=== PATIENT | female | born 2000 | race Caucasian/White ===

== ENCOUNTER 2019-05-27 15:56 | Outpatient (REF) | payer SELFPAY ==
[2019-05-27 19:02] LABS: Chol HDL Ratio 4.45 mg/dL (0.0-4.40); Cholesterol 187 mg/dL (0-200); Glucose 130 mg/dL (65-115); HDL Cholesterol 42 mg/dL (60-100); LDL Cholesterol Calculated 113 mg/dL (50-129); LDL HDL Ratio 2.69 RATIO (0.00-3.22); Triglycerides 158 mg/dL (0-150)
[2019-05-27 21:37] LABS: Estmated Average Glucose 128; Hemoglobin A1C 6.1 % (4.0-6.0)
== END 2019-05-27 15:57 | disposition home or self-care (01) ==
LOC: LAB 15:56
PROVIDERS: Visit Provider Dermatology
DX: Z13.9 Encounter for screening, unspecified (principal)
CPT/HCPCS: 80061; 82947; 83036

== ENCOUNTER → 2019-11-04 11:11 | Outpatient (BNVA) | payer SELFPAY | PROVIDERS: Visit Provider Nurse Practitioner Family | DX: E11.9 Type 2 diabetes mellitus without complications (principal) | CPT/HCPCS: 83036; 84681 ==

== ENCOUNTER → 2021-04-17 12:00 | Outpatient (BNVA) | payer SELFPAY | PROVIDERS: PCP Nurse Practitioner Family; Visit Provider Nurse Practitioner Family | DX: E11.9 Type 2 diabetes mellitus without complications (principal); E03.9 Hypothyroidism, unspecified; Z13.6 Encounter for screening for cardiovascular disorders; E55.9 Vitamin D deficiency, unspecified | CPT/HCPCS: 36415; 81003; 83036; 85025 ==

== ENCOUNTER 2021-07-24 22:32 | Emergency (ER) | payer MEDICAID, SELFPAY ==
[2021-07-24 22:38] VITALS: BP 140/89; PULSE 94; RESP 14; TEMP 36.3; O2SAT 97; BMI 32.5
--- NOTE | 2021-07-24 22:48 | W.ED.PREGNAN ---
HPI - General: Chief complaint: Abdominal Pain Stated complaint: preg, pain in lower abd Time Seen by Provider: 07/24/21 22:38 Source: patient Mode of arrival: ambulatory Limitations: no limitations History of Present Illness: Patient is a nice female at approximately 17 weeks gestation here for complaints of some lower abdominal pain. 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 She felt like she noticed it more so when she would sit down. She does states she feels like her bladder hurts when she urinates. She does complain of some vaginal frequency and feeling like she has to go again immediately after urinating. She is not having any fevers or flank pain. She has not had any vaginal bleeding. She does report some vaginal discharge but is not sure if this is physiologic with . She has not had any odorous discharge. Denies yellow/green discharge. She is monogamous with her partner and denies concerns for STDs. She is not having any contraction-like sensations. Patient states she is a diabetic and is being followed by an OB in [place]. Complaint: abdominal pain Onset (ago): day(s) Pain Consistency: intermittent Location: pelvis Relieving factors: none Vaginal bleeding: none Patient : Yes Associated symptoms: Reports abdominal pain and vaginal discharge; Deny dysuria, headache(s), malaise, nausea or vomiting Review of Systems Const: Denies: fever(s), chills, body aches, fatigue or malaise Card: Denies: chest pain Resp: Denies: dyspnea GI: Reports: abdominal pain; Denies: nausea, vomiting, diarrhea or change in bowel habits : Reports: urinary frequency and vaginal discharge; Denies: flank pain, difficulty voiding, dysuria, urinary urgency, urinary hesitancy, dribbling, nocturia, oliguria, urinary incontinence, hematuria, genital lesions, genital pruritis, vaginal odor or vaginal bleeding Musc: Denies: neck pain, back pain, extremity pain or joint pain Skin/Breast: Denies: rash Neuro: Denies: headache(s), numbness in extremities, weakness in extremities or sensory changes PFSH ED PFSH: Medical History (Updated 07/25/21 @ 00:34 by IGNACIA Zaman) Diabetes mellitus Headache Hypertension screen Hypothyroid New onset type 2 diabetes mellitus Vitamin D deficiency Physical Exam Const: COMMON NORMALS: no acute distress, patient oriented x3, no limitations and alert GENERAL APPEARANCE: cooperative NUTRITIONAL APPEARANCE: overweight ORIENTATION/CONSCIOUSNESS: Yes awake, Yes oriented to person, Yes oriented to place and Yes oriented to time Resp: COMMON NORMALS: normal respiratory effort and clear to auscultation bilaterally AUSCULTATION: clear to auscultation bilaterally Cardio: COMMON NORMALS: regular rate and regular rhythm RATE: regular rate RHYTHM: regular rhythm GI: COMMON NORMALS: Normal to inspection, nondistended, normoactive bowel sounds present, Soft to palpation, No hepatosplenomegaly present and no masses INSPECTION: Yes normal to inspection and Yes gravid abdomen PALPATION: Yes Soft to palpation, Yes Tenderness to palpation present (GI) (mild suprapubic ) and Yes No hepatosplenomegaly present : COMMON NORMALS: Yes no CVA tenderness BLADDER/KIDNEY EXAM: Yes no CVA tenderness OB/EXTERNAL & SPECULUM: Deferred OB/external & speculum exam Back/Pelvis: COMMON NORMALS: no CVA tenderness, thoracic and lumbar spine normal to inspection, no thoracic nor lumbar tenderness and thoraco-lumbar ROM normal Extremity: COMMON NORMALS: normal to inspection Neuro: COMMON NORMALS: patient oriented x3 SENSORIUM/ORIENTATION: Yes alert, Yes oriented to person, Yes oriented to place and Yes oriented to time Skin: COMMON NORMALS: no rashes or lesions noted GENERAL SKIN EXAM: no rashes or lesions noted Course ED course: Bedside US reveals live IUP with normal movement and cardiac activity Vital Signs: Vital signs: Vital Signs Temperature 97.3 F L 07/24/21 22:38 Pulse Rate 80 07/25/21 00:40 Respiratory Rate 14 07/25/21 00:40 Blood Pressure 136/74 07/25/21 00:40 Pulse Oximetry 97 07/25/21 00:40 MDM - OB/Uterine Contractions Medical Decision Making Patient's blood work is unremarkable. Glucose is 150 which patient states is fairly normal for her diabetes. Her UA is clear. Patient deferred pelvic exam but self collect swabs were obtained. Her wet prep is negative for trichomoniasis, yeast, BV. Gonorrhea/chlamydia swabs pending. She is monogamous with her current partner and has no concern for STDs. I think PID would be unlikely. Patient most likely experiencing discomfort of versus round ligament pain. Bedside ultrasound showed a live IUP with good movement and normal heart rate. Recommend she follow-up with her OB provider this week for re-evaluation. Strict return to ED precautions were given and patient voiced understanding. Lab Data : 07/24/21 23:20 07/24/21 23:20 Laboratory Results WBC 11.1 10^3/uL (4.0-10.0) H 07/24/21 23:20 RBC 4.10 10^6/uL (4.1-5.3) 07/24/21 23:20 Hgb 12.4 g/dL (11.5-15.3) 07/24/21 23:20 Hct 35.3 % (37.0-47.0) L 07/24/21 23:20 MCV 86.1 fl (81-99) 07/24/21 23:20 MCH 30.2 pg (28.0-34.0) 07/24/21 23:20 MCHC 35.1 g/dL (30.0-36.0) 07/24/21 23:20 RDW 12.2 % (12.1-15.1) 07/24/21 23:20 Plt Count 356 10^3/cmm (130-400) 07/24/21 23:20 MPV 10.5 fL (7.4-10.4) H 07/24/21 23:20 Neut % (Auto) 68.9 % 07/24/21 23:20 Lymph % (Auto) 25.2 % 07/24/21 23:20 [place] % (Auto) 4.4 % 07/24/21 23:20 Eos % (Auto) 1.0 % 07/24/21 23:20 Baso % (Auto) 0.3 % 07/24/21 23:20 Neut # (Auto) 7.67 10^3/uL (1.8-7.7) 07/24/21 23:20 Lymph # (Auto) 2.8 10^3/uL (0.8-4.8) 07/24/21 23:20 [place] # (Auto) 0.5 10^3/uL (0.2-0.9) 07/24/21 23:20 Eos # (Auto) 0.1 10^3/uL (0.0-0.8) 07/24/21 23:20 Baso # (Auto) 0.0 10^3/uL (0.0-0.1) 07/24/21 23:20 Nucleated RBC % (auto) 0 % 07/24/21 23:20 Nucleated RBCs # 0.0 /100WBC 07/24/21 23:20 Sodium 136 mmol/L (136-145) 07/24/21 23:20 Potassium 3.8 mmol/L (3.5-5.1) 07/24/21 23:20 Chloride 103 mmol/L (98-107) 07/24/21 23:20 Carbon Dioxide 21 mmol/L (22-29) L 07/24/21 23:20 Anion Gap 15.8 (5-19) 07/24/21 23:20 BUN 8 mg/dL (6-20) 07/24/21 23:20 Creatinine 0.4 mg/dL (0.5-0.9) L 07/24/21 23:20 GFR Calculation 199.6 mL/min (90-130) H 07/24/21 23:20 Glucose 150 mg/dL (65-115) H 07/24/21 23:20 Calculated Osmolality 283 mOsm/kg (285-295) L 07/24/21 23:20 Calcium 8.9 mg/dL (8.5-10.5) 07/24/21 23:20 Total Bilirubin 0.2 mg/dL (0.15-1.2) 07/24/21 23:20 AST 12 U/L (0-32) 07/24/21 23:20 ALT 9 U/L (0-33) 07/24/21 23:20 Alkaline Phosphatase 66 IU/L (35-105) 07/24/21 23:20 Total Protein 6.8 g/dL (6.6-8.7) 07/24/21 23:20 Albumin 3.9 g/dL (3.5-5.2) 07/24/21 23:20 Globulin 2.9 g/dL (1.3-4.6) 07/24/21 23:20 Urine Color Yellow (Yellow) 07/24/21 23:21 Urine Appearance Clear (CLEAR) 07/24/21 23:21 Urine pH 6 (5-7) 07/24/21 23:21 Ur Specific [place] 1.015 (1.005-1.030) 07/24/21 23:21 Urine Protein Neg (Negative) 07/24/21 23:21 Urine Glucose (UA) 1+ (Normal) H 07/24/21 23:21 Urine Ketones Negative (Negative) 07/24/21 23:21 Urine Blood Neg (Negative) 07/24/21 23:21 Urine Nitrate Negative (Negative) 07/24/21 23:21 Urine Bilirubin Neg (Negative) 07/24/21 23:21 Urine Urobilinogen Norm mg/dL (Negative) 07/24/21 23:21 Ur Leukocyte Esterase Negative (Negative) 07/24/21 23:21 Discharge Plan Discharge Patient Disposition: Home Clinical Impression: Abdominal pain in Qualifiers: Trimester: second trimester Qualified Code(s): O26.892 - Other specified related conditions, second trimester Condition: Stable Prescriptions: No Action (DME) pen needle, diabetic [Easy Comfort Pen [place]] 32 gauge x 5/32 needle See Rx Instructions .Route Qty: 100 0RF Rx Instructions: As directed naproxen 250 mg tablet See Rx Instructions .ROUTE .COMPLEX Qty: 30 0RF Dose Instruction: TAKE 3 TABLETS BY MOUTH AT ONSET OF HEADACHE AND CAN TAKE 1 TO 2 TABLETS BY MOUTH AFTER 2 HOURS UP O 5 TABLETS IN 24 HOURS Rx Instructions: TAKE 3 TABLETS BY MOUTH AT ONSET OF HEADACHE AND CAN TAKE 1 TO 2 TABLETS BY MOUTH AFTER 2 HOURS UP O 5 TABLETS IN 24 HOURS insulin lispro [Humalog KwikPen Insulin] 100 unit/mL insulin pen See Rx Instructions SUBCUT QAM 30 Days Qty: 3 2RF Rx Instructions: sliding scale SUBCUT as needed, max daily dose 32 units 340B (DME) Easy Comfort Pen [place] 33 gauge x 1/4 needle See Rx Instructions .ROUTE .MEDSUPPLY Qty: 100 0RF Rx Instructions: As directed daily metformin 1,000 mg tablet extended release 24hr 1,000 mg PO BID 30 Days Qty: 60 2RF Discharge Orders: Discharge ED (Routine); Ordered 07/25/21 Ordered By: Destini Charles Referrals: BLAYNE Faria, PODIATRIC AIDE [Primary Care Provider] - Coding Level of Care Code ED Environmental Protection Inspector for Chg Fwd Exam Comprehensive
[2021-07-24 23:32] LABS: Basophils % 0.3 %; Eosinophils # 0.1 10^3/uL (0.0-0.8); Hematocrit 35.3 % (37.0-47.0); Hemoglobin 12.4 g/dL (11.5-15.3); Lymphocytes # 2.8 10^3/uL (0.8-4.8); Lymphocytes % 25.2 %; Mean Corpuscular HGB Conc 35.1 g/dL (30.0-36.0); Mean Corpuscular Hemoglobin 30.2 pg (28.0-34.0); Mean Corpuscular Volume 86.1 fl (81-99); Mean Platelet Volume 10.5 fL (7.4-10.4); Monocytes # 0.5 10^3/uL (0.2-0.9); Monocytes % 4.4 %; Neutrophils # 7.67 10^3/uL (1.8-7.7); Neutrophils % 68.9 %; Nucleated Red Blood Cells % 0 %; Platelet Count 356 10^3/cmm (130-400); Red Cell Distribution Width 12.2 % (12.1-15.1); White Blood Count 11.1 10^3/uL (4.0-10.0)
[2021-07-24 23:44] VITALS: BP 117/74; PULSE 80; RESP 14; O2SAT 98
[2021-07-24 23:54] LABS: Add Urine Microscopic? NO; Charge for UA Resulting for Rev
[2021-07-24 23:55] LABS: Alanine Aminotransferase 9 U/L (0-33); Albumin Level 3.9 g/dL (3.5-5.2); Alkaline Phosphatase 66 IU/L (35-105); Anion Gap 15.8 (5-19); Aspartate Amino Transferase 12 U/L (0-32); Blood Urea Nitrogen 8 mg/dL (6-20); Calcium 8.9 mg/dL (8.5-10.5); Carbon Dioxide 21 mmol/L (22-29); Chloride 103 mmol/L (98-107); Globulin 2.9 g/dL (1.3-4.6); Glomerular Filtration Rate 199.6 mL/min (90-130); Glucose 150 mg/dL (65-115); Osmolality Calculated 283 mOsm/kg (285-295); Potassium 3.8 mmol/L (3.5-5.1); Sodium 136 mmol/L (136-145); Total Bilirubin 0.2 mg/dL (0.15-1.2); Total Protein 6.8 g/dL (6.6-8.7)
[2021-07-25 00:12] VITALS: BP 136/74; PULSE 80; O2SAT 97
[2021-07-25 00:23] LABS: Bilirubin Urine Neg (Negative); Blood Urine Neg (Negative); Glucose Urine UA 1+ (Normal); Ketones Urine Negative (Negative); Leukocyte Esterase Urine Negative (Negative); Nitrate Urine Negative (Negative); Protein Urine Neg (Negative); Specific Gravity, Urine 1.015 (1.005-1.030); Urine Appearance Clear (CLEAR); Urine Color Yellow (Yellow); Urobilinogen Urine Norm (Negative); pH Urine 6 (5-7)
[2021-07-25 00:40] VITALS: BP 136/74; PULSE 80; RESP 14; O2SAT 97
== END 2021-07-25 00:42 | disposition home or self-care (01) ==
PROVIDERS: Emergency Medicine; Emergency Provider Physician Assistant; PCP Nurse Practitioner Family
DX: O26.892 Other specified pregnancy related conditions, second trimester (principal); Z3A.17 17 weeks gestation of pregnancy; R10.9 Unspecified abdominal pain; O24.912 Unspecified diabetes mellitus in pregnancy, second trimester; Z79.4 Long term (current) use of insulin; Z79.84 Long term (current) use of oral hypoglycemic drugs
CPT/HCPCS: 80053; 81003; 85025; 87210; 87491; 87591; 99283

== ENCOUNTER → 2021-08-25 00:01 | Outpatient (BNVA) | payer MEDICAID, SELFPAY | PROVIDERS: PCP Nurse Practitioner Family; Visit Provider Nurse Practitioner Family | DX: Z34.90 Encounter for supervision of normal pregnancy, unspecified, unspecified trimester (principal) | CPT/HCPCS: 83036 ==

== ENCOUNTER 2021-12-06 08:41 | Inpatient (IN) | payer MEDICAID, SELFPAY ==
[2021-12-06] VITALS (92 sets, daily range): BP systolic 99–215; BP diastolic 55–109; PULSE 37–155; RESP 18; TEMP 36.2–36.9; O2SAT 99–100; BMI 35.2
[2021-12-06 07:51] LABS: Glucose Point of Care 169 mg/dL (70-110)
--- NOTE | 2021-12-06 08:04 | P.HP_ITS ---
Providers/Chief Complaint Admitting Physician: James Gandhi MD Primary ROUGHER MACHINE OPERATOR: Dr. Paz Primary Care Provider: CHRISTY Brown Chief Complaint: possible SROM HPI ROUGHER MACHINE OPERATOR History of Present Illness Skyla Gil is a 21 year old female Present Details : 1 Para: 0 care: good care Ultrasounds: abnormal US findings Labs Rubella: Immune RPR: Negative GBS: Unknown Review of Systems Const: Denies: fever(s) or chills Resp: Denies: dyspnea, productive cough or non-productive cough GI: Denies: nausea or vomiting : Denies: dysuria Musc: Denies: back pain or joint swelling Psych: Denies: anxiety or depression Medications/Allergies Home Medications Medication Instructions Recorded Confirmed Last Taken Type pen needle, diabetic 33 gauge x #100 ea 12/29/20 12/06/21 Unknown Rx 1/4 (Easy Comfort Pen [place]) pen needle, diabetic 32 gauge x #100 ea 04/17/21 12/06/21 Unknown Rx 5/32 (Easy Comfort Pen [place]) metformin 1,000 mg tablet,extended 1,000 mg PO BID 30 days #60 tabs 10/19/21 12/06/21 12/05/21 Rx release 24hr insulin degludec 100 unit/mL (3 10 unit (0.1 mL) SUBCUT DAILY #15 11/06/21 12/06/21 12/05/21 Rx mL) subcutaneous pen (Tresiba mL FlexTouch U-100 insulin) insulin lispro 100 unit/mL See Rx Instructions SUBCUT QAM 30 11/14/21 12/06/21 12/05/21 Rx subcutaneous pen (Humalog Kw days #15 mL (U-100) Insulin) [id number]-vxaonxpt 2 cap PO PRN PRN Migraine Headache 12/06/21 12/06/21 12/04/21 History 50 mg-300 mg-40 mg capsule (Fioricet) Allergies Allergy/AdvReac Type Severity Reaction Status Date / Time No Known Allergies Allergy Verified 12/06/21 14:31 PFSH ROUGHER MACHINE OPERATOR PFSH: Medical History Diabetes mellitus Headache Hypertension screen Hypothyroid New onset type 2 diabetes mellitus Vitamin D deficiency History History History 1 Term 0 0 Miscarriages/Ectopic 0 Living Children 0 Care ABELINO Calculator Estimated Delivery Date Method Current WG Current Estimate 01/25/22 LMP (Certain) 32w 6d Vitals/I&O/Wt Last Vital Signs Temp 98.2 F 12/06/21 14:15 Pulse 73 12/06/21 15:26 Resp 18 12/06/21 09:00 BP 119/66 12/06/21 15:26 Pulse Ox 100 12/06/21 10:54 O2 Del Method 12/06/21 11:00 12/06/21 12/06/21 12/06/21 06:59 14:59 22:59 Intake Total 1749.35 / 1749.35 Balance 1749.35 / 1749.35 Weight last 48 hrs Weight 92.986 kg Physical Exam Const: COMMON NORMALS: no acute distress, patient oriented x3, healthy appearing, alert and well nourished HENMT: COMMON NORMALS: normocephalic and moist oral mucous membranes Chest: COMMONS NORMALS: normal inspection of the chest Cardio: COMMON NORMALS: regular rate, regular rhythm and No murmurs present (Cardio) GI: INSPECTION: Yes normal to inspection Neuro: COMMON NORMALS: patient oriented x3, moves all extremities and no focal motor deficits Psych: COMMON NORMALS: mental status grossly normal Urinary Catheter Management: Acevedo: Cath Placed During This Visit: yes Urinary Catheter Date of Insertion: 12/06/21 Urinary Catheter Time of Insertion: 10:55 Data : 12/06/21 07:45 12/06/21 15:01 A&P Assessment and plan (1) : Patient is a late , however she is in active labor with ruptured membr anes. Will admit to Labor and delivery. Proceed with routine labor management Status: Acute (2) Diabetes mellitus: Patient was diagnosed with diabetes just prior to . The patient reports that she has had good control of her blood sugars throughout her . Patient was seen by MFM. We will proceed with every 2 hour glucose checks with sliding scale insulin. Discussed risks and benefits of staying at this facility the patient would like to proceed with staying. It was discussed with on-call peds physician who is agreeable with this plan. Status: Acute Qualifiers: Diabetes mellitus type: type 2 Diabetes mellitus terminal supervisor insulin use: without longterm use Diabetes mellitus complication status: without complicat ion Qualified Code(s): E11.9 - Type 2 diabetes mellitus without complications Attestations Medical Necessity Statement*: Anticipate at least 24-hour stay Coding Level of Care Code New Pt Acute Fitter Placer for [facility] Fwd Patient Type New History Detailed Exam Detailed Medical Decision Making Moderate Complexity Diagnoses Z34.90 Diabetes mellitus E11.9 Diabetes mellitus type: type 2 Diabetes mellitus terminal supervisor insulin use: without longterm use Diabetes mellitus complication status: without complication
[2021-12-06] MEDS: lactated ringers 1,000 ML 999 ML IV ×2 (08:30→09:40)
[2021-12-06 08:37] LABS: Actim Prom Positive
[2021-12-06] MEDS: ampicillin 2,000 MG in sodium chloride 0.9% (plus) 50 ML 100 MG IV (09:00)
[2021-12-06 09:19] LABS: Basophils % 0.3 %; Eosinophils # 0.1 10^3/uL (0.0-0.8); Eosinophils % 1.1 %; Hematocrit 37.4 % (37.0-47.0); Hemoglobin 12.7 g/dL (11.5-15.3); Lymphocytes # 1.8 10^3/uL (0.8-4.8); Lymphocytes % 19.7 %; Mean Corpuscular Hemoglobin 29.6 pg (28.0-34.0); Mean Corpuscular Volume 87.2 fl (81-99); Monocytes # 0.4 10^3/uL (0.2-0.9); Monocytes % 4.6 %; Neutrophils # 6.54 10^3/uL (1.8-7.7); Neutrophils % 73.8 %; Nucleated Red Blood Cells % 0 %; Platelet Count 313 10^3/cmm (130-400); Red Blood Count 4.29 10^6/uL (4.1-5.3); Red Cell Distribution Width 12.2 % (12.1-15.1); White Blood Count 8.9 10^3/uL (4.0-10.0)
--- NOTE | 2021-12-06 10:26 | ANES.PREANE2 ---
Pre-Anesthetic Assessment Height/Weight: Height 1.63 m Weight 92.986 kg Temp Pulse BP Pulse Ox 97.5 F L 65 132/80 100 12/06/21 07:16 12/06/21 10:22 12/06/21 10:22 12/06/21 10:19 Familial anesthetic complications: None Was Beta Calvin taken within 24 hours: N/A Was Clonidine taken within 24 hours: N/A Social No alcohol and No tobacco Exam alert, oriented x 3, clear to auscultation bilaterally and regular rate & rhythm Airway Submandibular: within normal limits Cervical ROM: within normal limits Mallampati: Class II Dentition: full Metabolic Diabetes Mellitus and Thyroid Disease Anesthetic Plan ASA status: 2 Anesthesia: Regional (specify below) (Labor epidural) Medications/Allergies Home Medications Medication Instructions Recorded Confirmed Last Taken Type naproxen 250 mg tablet See Rx Instructions .Route 07/12/20 08/25/21 Unknown Rx .COMPLEX #30 tabs pen needle, diabetic 33 gauge x #100 ea 12/29/20 08/25/21 Unknown Rx 1/4 (Easy Comfort Pen [place]) pen needle, diabetic 32 gauge x #100 ea 04/17/21 08/25/21 Unknown Rx 5/32 (Easy Comfort Pen [place]) metformin 1,000 mg tablet,extended 1,000 mg PO BID 30 days #60 tabs 10/19/21 Unknown Rx release 24hr insulin degludec 100 unit/mL (3 10 unit (0.1 mL) SUBCUT DAILY #15 11/06/21 Unknown Rx mL) subcutaneous pen (Tresiba mL FlexTouch U-100 insulin) metformin 500 mg tablet,extended 1,000 mg PO BID #360 tabs 11/07/21 Unknown Rx release 24 hr insulin lispro 100 unit/mL See Rx Instructions SUBCUT QAM 30 11/14/21 Unknown Rx subcutaneous pen (Humalog Kw days #15 mL (U-100) Insulin) Allergies Allergy/AdvReac Type Severity Reaction Status Date / Time No Known Allergies Allergy Verified 08/25/21 08:49 Current Medications Generic Name Dose Route Start Last Admin Trade Name Freq PRN Reason Stop Dose Admin Ropivacaine 200 mg in 100 mls @ 13 mls/hr 12/06/21 09:30 12/06/21 10:14 Naropin Premix EPIDURAL 13 mls/hr .[id number] CANDICE Administration Lactated Ringer's 1,000 mls @ 999 mls/hr 12/06/21 09:26 12/06/21 10:19 Lactated Ringers IV 125 mls/hr .Q1H1M PRN Infusion See label comments PFSH Anesthesia Medical History (Updated 08/25/21 @ 11:08 by CHRISTY Abdi) Diabetes mellitus Headache Hypertension screen Hypothyroid New onset type 2 diabetes mellitus Vitamin D deficiency Female Reproductive History : 1 Data Anesthesia : 12/06/21 07:45 Short CBC 12/06/21 Range/Units 07:45 WBC 8.9 (4.0-10.0) 10^3/uL Hgb 12.7 (11.5-15.3) g/dL Hct 37.4 (37.0-47.0) % MCV 87.2 (81-99) fl Plt Count 313 (130-400) 10^3/cmm Neut % (Auto) 73.8 % Neut # (Auto) 6.54 (1.8-7.7) 10^3/uL Cardiac Studies: No Data to Display Anesthesia Procedures Epidural Time Out Performed: Yes Consents Signed: Procedure Consent Consent: requested by attending/covering physician, from patient, risks and benefits reviewed and patient agrees to proceed Lumbar Level: L3-L4 Epidural position: sitting Epidural procedure: sterile prep of area, 1% lidocaine to numb the area, 18 g needle, neg for paresthesia, test dose given (2% lido test), placed PCEA, no systemic response, sterile dressing applied, L.U.D. no apparent complications and 0.2% Ropiavacaine @ mls/hr (13) Additional Comments: GIANNI at 5cm, cath at 10cm, bolused 5mls of 2% lido
[2021-12-06 11:08] LABS: Glucose Point of Care 163 mg/dL (70-110)
[2021-12-06] MEDS: insulin lispro 100 unit/1 mL SUBCUT (11:20)
[2021-12-06 12:15] LABS: Add Urine Microscopic? NO; Charge for UA Resulting for Rev
[2021-12-06] MEDS: ampicillin 1,000 MG in sodium chloride 0.9% (plus) 50 ML 100 MG IV ×2 (12:15→17:03)
[2021-12-06 12:21] LABS: Bilirubin Urine Neg (Negative); Blood Urine Neg (Negative); Glucose Urine UA 4+ (Normal); Ketones Urine 1+ (Negative); Leukocyte Esterase Urine Negative (Negative); Nitrate Urine Negative (Negative); Protein Urine Neg (Negative); Urine Appearance Clear (CLEAR); Urine Color Yellow (Yellow); Urobilinogen Urine Norm (Negative); pH Urine 7 (5-7)
[2021-12-06 12:57] LABS: Urine Creatinine 50 mg/dL (28-217); Urine Protein Random 7 mg/dL
[2021-12-06 13:04] LABS: UPRO/UCREAT Ratio 0.14 mg/mg CR
[2021-12-06 13:44] LABS: Glucose Point of Care 127 mg/dL (70-110)
[2021-12-06 15:33] LABS: Alanine Aminotransferase 9 U/L (0-33); Alkaline Phosphatase 98 U/L (35-105); Anion Gap 14.5 (5-19); Aspartate Amino Transferase 9 U/L (0-32); Blood Urea Nitrogen 5 mg/dL (6-20); Calcium 8.7 mg/dL (8.5-10.5); Carbon Dioxide 23 mmol/L (22-29); Chloride 102 mmol/L (98-107); Globulin 2.7 g/dL (1.3-4.6); Glomerular Filtration Rate 154.3 mL/min (90-130); Glucose 91 mg/dL (65-115); Osmolality Calculated 279 mOsm/kg (285-295); Potassium 3.5 mmol/L (3.5-5.1); Sodium 136 mmol/L (136-145); Total Bilirubin 0.2 mg/dL (0.15-1.2); Total Protein 5.7 g/dL (6.6-8.7); Uric Acid 3.6 mg/dL (2.4-5.7)
[2021-12-06 15:40] LABS: Glucose Point of Care 77 mg/dL (70-110)
[2021-12-06] MEDS: dextrose 5%-lactated ringers 1,000 ML 125 ML IV (16:30)
[2021-12-06] MEDS: oxytocin 30 UNIT/500 ML BAG 600 UNIT IV (17:36)
[2021-12-06] MEDS: lidocaine 2% INJ 20 mL INJECTION (17:46)
--- NOTE | 2021-12-06 18:13 | P.PCNOB_ITS ---
Delivery Note: Date of delivery: December 06, 2021 Pre-delivery diagnoses: DM, late IUP Post-delivery diagnoses: same, viable Procedure: Spontaneous vaginal delivery Delivering Physician: Dr. James Gandhi Estimated blood loss (mL): 300 Findings: 3rd Degree perineal tear Post Delivery Diagnoses: Diabetes mellitus: Qualifiers: Diabetes mellitus type: type 2 Diabetes mellitus termite control servicer insulin use: without longterm use Diabetes mellitus complication status: without complication Qualified Code(s): E11.9 - Type 2 diabetes mellitus without complications Pre-Delivery Course: Patient presented with rupture of membranes and with active contractions. Progressed throughout the day as expected. She had repeated early decelerations and variable decelerations during her labor Delivery: Once patient was complete, she starting pushing for 1-1/2 hours. Upon delivery of the head a shoulder dystocia was noted. She also had a nuchal cord x1. Combination of dental traction and Marlys shoulder was delivered and delivered through the nuchal cord. Foot was placed on mother's belly and the cord was then clamped and cut and handed away to nursing staff for re suscitation. The placenta was delivered without incident. Upon investigation 3rd degree tear was noted and then repaired with 2-0 Vicryl. Post-Delivery Status: At the conclusion of the procedure hemostasis was noted and repair was intact. History History History 1 Term 0 0 Miscarriages/Ectopic 0 Living Children 0 A&P Assessment and plan (1) Diabetes mellitus: The patient was previously on Jardiance prior to . We will restart Jardiance and continue metformin. To [place] sliding scale insulin as needed Status: Acute Qualifiers: Diabetes mellitus type: type 2 Diabetes mellitus longterm insulin use: without longterm use Diabetes mellitus complication status: without complication Qualified Code(s): E11.9 - Type 2 diabetes mellitus without complications (2) Spontaneous vaginal delivery: Routine care Status: Acute (3) Third degree perineal laceration during delivery with less than 50% tear of external anal sphincter: Repaired. Routine wound care Status: Acute Coding Level of Care Code Acute Dot Compliance Coordinator for g Fwd Diagnoses Diabetes mellitus E11.9 Diabetes mellitus type: type 2 Diabetes mellitus termite control servicer insulin use: without termite control servicer use Diabetes mellitus complication status: without complication Spontaneous vaginal delivery O80 Third degree perineal laceration during delivery with less than 50% tear of external anal sphincter O70.21
[2021-12-06 19:27] LABS: Glucose Point of Care 132 mg/dL (70-110)
[2021-12-06] MEDS: benzocaine-menthol 78 gm Canister 1 SPRAY TOPICAL (21:14)
[2021-12-06] MEDS: lanolin oint 7 gm 1 APPLIC TOPICAL (21:14)
[2021-12-06] MEDS: ibuprofen 800 mg tablet PO (21:15)
[2021-12-07] VITALS (14 sets, daily range): BP systolic 100–137; BP diastolic 53–91; PULSE 72–105; RESP 16; TEMP 35.9
[2021-12-07 06:19] LABS: Hematocrit 30.5 % (37.0-47.0); Hemoglobin 10.2 g/dL (11.5-15.3); Mean Corpuscular HGB Conc 33.4 g/dL (30.0-36.0); Mean Corpuscular Hemoglobin 29.8 pg (28.0-34.0); Mean Corpuscular Volume 89.2 fl (81-99); Mean Platelet Volume 10.8 fL (7.4-10.4); Platelet Count 279 10^3/cmm (130-400); Red Blood Count 3.42 10^6/uL (4.1-5.3); Red Cell Distribution Width 12.4 % (12.1-15.1); White Blood Count 13.2 10^3/uL (4.0-10.0)
[2021-12-07] MEDS: docusate sodium 100 mg Capsule PO (08:58)
[2021-12-07] MEDS: ibuprofen 800 mg tablet PO (08:58)
[2021-12-07] MEDS: prenatal vitamin Capsule 1 CAP PO (08:58)
[2021-12-07 09:14] LABS: Glucose Point of Care 151 mg/dL (70-110)
--- NOTE | 2021-12-07 09:30 | ANE.PACU2 ---
Inpatient post-anesthesia follow up: Airway intact: Yes Vital signs: Temperature 98.5 F Pulse Rate 72 Respiratory Rate 18 Blood Pressure 110/76 Pulse Oximetry 100 Oxygen Delivery Me thod Room Air Oxygen Flow Rate Fraction of Inspir ed Oxygen Hydration adequate: Yes Nausea and vomiting: No Pain level: 2 Mental status: Baseline
[2021-12-07] MEDS: sitagliptin 100 mg Tablet 50 MG PO (10:46)
[2021-12-07] MEDS: metformin XR 500 MG Tablet PO (10:46)
[2021-12-07] MEDS: insulin lispro 100 unit/1 mL SUBCUT (10:47)
--- NOTE | 2021-12-07 12:00 | PC.NURSE ---
adjunct communications faculty member from [facility] in speaking with patient now regarding baby
--- NOTE | 2021-12-08 09:22 | PM.OBGYDC ---
Discharge Providers SHIPPING HELPER Date of Admission: 12/06/21 08:41 Date of Discharge: 12/08/21 Attending Provider at Admission: James Gandhi MD Attending Provider at Discharge: James Gandhi MD Primary Care Provider: CHRISTY Brown Diagnoses at Discharge Discharge Diagnosis (1) Diabetes mellitus: Status: Acute Qualifiers: Diabetes mellitus complication status: without complication Diabetes mellitus [facility] insulin use: without [facility] use Diabetes mellitus type: type 2 Qualified Code(s): E11.9 - Type 2 diabetes mellitus without complications (2) Spontaneous vaginal delivery: Status: Acute (3) Third degree perineal laceration during delivery with less than 50% tear of external anal sphincter: Status: Acute Reason for Visit Reason for Visit: possible SROM Brief History: This is a 21 y/o G1PO that presented at 36w3d with PROM. The patient has history DMII and was being managed by MFM, Dr. Paz, at [facility]. Hospital Course Hospital Course Prom was confirmed after arrival. Discussed risks and benefits of staying at [facility] and the patient opted to stay. The patient progressed as expected and delivered a viable infant boy. Shoulder dystocia and nuchal cord noted at delivery. The patient did have a 3rd degree perineal tear that was repaired. The patient's post care was unremarkable. Information Peripartum Data: Delivery Method: Vaginal Laceration description: Perineal - 3rd Degree Episiotomy description: None complications: none Physical Exam Const: COMMON NORMALS: no acute distress, patient oriented x3 and alert Chest: COMMONS NORMALS: normal inspection of the chest Resp: COMMON NORMALS: normal respiratory effort Cardio: COMMON NORMALS: regular rate and regular rhythm RATE: regular rate RHYTHM: regular rhythm GI: COMMON NORMALS: Normal to inspection, nondistended, normoactive bowel sounds present and Soft to palpation PALPATION: Yes Soft to palpation Extremity: COMMON NORMALS: normal to inspection Neuro: COMMON NORMALS: patient oriented x3 SENSORIUM/ORIENTATION: Yes alert Psych: COMMON NORMALS: mental status grossly normal Urinary Catheter Management: Acevedo: Cath Placed During This Visit: yes, but has since been removed by the nurse Reason for Continuing Indwelling Catheter: Decision to DC Catheter Urinary Catheter Date of Insertion: 12/06/21 Urinary Catheter Time of Insertion: 10:55 Date Urinary Catheter Removed: 12/06/21 Time Urinary Catheter Discontinued: 15:45 History History History 1 Term 0 0 Miscarriages/Ectopic 0 Living Children 0 Discharge Data Studies Completed and Pending Pending at discharge Category Date Time Status Group B Streptococcus Culture Routine Lab 12/06/21 08:00 Received Laboratory Results WBC 13.2 10^3/uL (4.0-10.0) H 12/07/21 05:45 RBC 3.42 10^6/uL (4.1-5.3) L 12/07/21 05:45 Hgb 10.2 g/dL (11.5-15.3) L 12/07/21 05:45 Hct 30.5 % (37.0-47.0) L 12/07/21 05:45 MCV 89.2 fl (81-99) 12/07/21 05:45 MCH 29.8 pg (28.0-34.0) 12/07/21 05:45 MCHC 33.4 g/dL (30.0-36.0) 12/07/21 05:45 RDW 12.4 % (12.1-15.1) 12/07/21 05:45 Plt Count 279 10^3/cmm (130-400) 12/07/21 05:45 MPV 10.8 fL (7.4-10.4) H 12/07/21 05:45 Neut % (Auto) 73.8 % 12/06/21 07:45 Lymph % (Auto) 19.7 % 12/06/21 07:45 [place] % (Auto) 4.6 % 12/06/21 07:45 Eos % (Auto) 1.1 % 12/06/21 07:45 Baso % (Auto) 0.3 % 12/06/21 07:45 Neut # (Auto) 6.54 10^3/uL (1.8-7.7) 12/06/21 07:45 Lymph # (Auto) 1.8 10^3/uL (0.8-4.8) 12/06/21 07:45 Hood # (Auto) 0.4 10^3/uL (0.2-0.9) 12/06/21 07:45 Eos # (Auto) 0.1 10^3/uL (0.0-0.8) 12/06/21 07:45 Baso # (Auto) 0.0 10^3/uL (0.0-0.1) 12/06/21 07:45 Nucleated RBC % (auto) 0 % 12/06/21 07:45 Nucleated RBCs # 0.0 /100WBC 12/06/21 07:45 Sodium 136 mmol/L (136-145) 12/06/21 15:01 Potassium 3.5 mmol/L (3.5-5.1) 12/06/21 15:01 Chloride 102 mmol/L (98-107) 12/06/21 15:01 Carbon Dioxide 23 mmol/L (22-29) 12/06/21 15:01 Anion Gap 14.5 (5-19) 12/06/21 15:01 BUN 5 mg/dL (6-20) L 12/06/21 15:01 Creatinine 0.5 mg/dL (0.5-0.9) 12/06/21 15:01 GFR Calculation 154.3 mL/min (90-130) H 12/06/21 15:01 Glucose 91 mg/dL (65-115) 12/06/21 15:01 POC Glucose 151 mg/dL (70-110) H 12/07/21 09:10 Calculated Osmolality 279 mOsm/kg (285-295) L 12/06/21 15:01 Uric Acid 3.6 mg/dL (2.4-5.7) 12/06/21 15:01 Calcium 8.7 mg/dL (8.5-10.5) 12/06/21 15:01 Total Bilirubin 0.2 mg/dL (0.15-1.2) 12/06/21 15:01 AST 9 U/L (0-32) 12/06/21 15:01 ALT 9 U/L (0-33) 12/06/21 15:01 Alkaline Phosphatase 98 U/L (35-105) 12/06/21 15:01 Total Protein 5.7 g/dL (6.6-8.7) L 12/06/21 15:01 Albumin 3.0 g/dL (3.5-5.2) L 12/06/21 15:01 Globulin 2.7 g/dL (1.3-4.6) 12/06/21 15:01 Insulin-like GF I Positive 12/06/21 08:00 Urine Color Yellow (Yellow) 12/06/21 12:00 Urine Appearance Clear (CLEAR) 12/06/21 12:00 Urine pH 7 (5-7) 12/06/21 12:00 Ur Specific [place] 1.010 (1.005-1.030) 12/06/21 12:00 Urine Protein Neg (Negative) 12/06/21 12:00 Urine Glucose (UA) 4+ (Normal) H 12/06/21 12:00 Urine Ketones 1+ (Negative) H 12/06/21 12:00 Urine Blood Neg (Negative) 12/06/21 12:00 Urine Nitrate Negative (Negative) 12/06/21 12:00 Urine Bilirubin Neg (Negative) 12/06/21 12:00 Urine Urobilinogen Norm mg/dL (Negative) 12/06/21 12:00 Ur Leukocyte Esterase Negative (Negative) 12/06/21 12:00 U Random Total Protein 7 mg/dL 12/06/21 12:00 Urine Creatinine 50 mg/dL (28-217) 12/06/21 12:00 Protein/Creatinin Ratio 0.14 mg/mg CR 12/06/21 12:00 Blood Type B Positive 12/06/21 07:45 Rho(D) Type Positive 12/06/21 07:45 Antibody Screen Negative 12/06/21 07:45 Vitals Last Vital Signs Temp 96.7 F L 12/07/21 12:46 Pulse 83 12/07/21 11:30 Resp 16 12/07/21 11:00 BP 119/87 12/07/21 11:30 Pulse Ox 100 12/06/21 10:54 O2 Del Method 12/06/21 11:00 Discharge Plan Discharge Patient Disposition: Home Prescriptions: New ibuprofen 800 mg Tablet 800 mg PO TID 0RF Continued (DME) pen needle, diabetic [Easy Comfort Pen [place]] 32 gauge x 5/32 needle See Rx Instructions .Route Qty: 100 0RF Rx Instructions: As directed (DME) Easy Comfort Pen [place] 33 gauge x 1/4 needle See Rx Instructions .ROUTE .MEDSUPPLY Qty: 100 0RF Rx Instructions: As directed daily metformin 1,000 mg tablet extended release 24hr 1,000 mg PO BID 30 Days Qty: 60 2RF Tresiba FlexTouch U-100 100 unit/mL (3 mL) insulin pen 10 unit SUBCUT DAILY Qty: 15 2RF Rx Instructions: sliding scale, pt has scale insulin lispro [Humalog KwikPen Insulin] 100 unit/mL insulin pen See Rx Instructions SUBCUT QAM 30 Days Qty: 15 1RF Rx Instructions: sliding scale SUBCUT as needed, max daily dose 32 units 340B Fioricet 50-300-40 mg Capsule 2 cap PO PRN PRN (Reason: Migraine Headache) Discharge Orders: Discharge Order (Routine); Ordered 12/07/21 Ordered By: James Gandhi Discharge Diet: Diabetic Discharge Activity: Limit activity as instructed Patient Instructions: Depression (GEN), Preeclampsia and Eclampsia After Delivery (GEN), COVID-19 and (GEN), Hemorrhage (GEN), OB Discharge Report, OB Food/Drug Interaction Guide, OB Care at Home, Opioid Safety, OB Home Care, OB Vaginal Deliveries, Abnormal Bleeding Discharge Attestations SHIPPING HELPER Time Spent in Discharge Care*: less than 30 min Specific Discharge Activities: Specific discharge activities: educating patient Coding Level of Care Code Acute Ramp Flight Attendant for g Fwd Diagnoses Diabetes mellitus E11.9 Diabetes mellitus complication status: without complication Diabetes mellitus medical terminologist insulin use: without medical terminologist use Diabetes mellitus type: type 2 Spontaneous vaginal delivery O80 Third degree perineal laceration during delivery with less than 50% tear of external anal sphincter O70.21
== END 2021-12-07 12:45 | disposition home or self-care (01) | DRG 768 ==
LOC: OPOB 08:42 → OBGYN 08:42
PROVIDERS: Admitting Provider Family Medicine; PCP Nurse Practitioner Family; Visit Provider Family Medicine
DX: O42.013 Preterm premature rupture of membranes, onset of labor within 24 hours of rupture, third trimester (principal); Z37.0 Single live birth; O24.12 Pre-existing type 2 diabetes mellitus, in childbirth; O70.21 Third degree perineal laceration during delivery, IIIa; O76 Abnormality in fetal heart rate and rhythm complicating labor and delivery; O69.81X0 Labor and delivery complicated by cord around neck, without compression, not applicable or unspecified; Z3A.36 36 weeks gestation of pregnancy
CPT/HCPCS: 12345; 36415; 36416; 51702; 59025; 59409; 80053; 81003; 82570; 82962; 84112; 84156; 84550; 85025; 85027; 86850; 86900; 87081; 96372; 99211; J0290; J1815; J2795

== ENCOUNTER → 2022-04-09 11:44 | Outpatient (BNVA) | payer MEDICAID, SELFPAY | PROVIDERS: Visit Provider Nurse Practitioner | DX: E11.9 Type 2 diabetes mellitus without complications (principal); E03.9 Hypothyroidism, unspecified; Z30.09 Encounter for other general counseling and advice on contraception | CPT/HCPCS: 80053; 80061; 83036; 84443; 85025 ==

== ENCOUNTER → 2022-11-27 11:38 | Outpatient (BNVA) | payer MEDICAID, SELFPAY | PROVIDERS: PCP Nurse Practitioner Family; Visit Provider Nurse Practitioner Family | DX: E03.9 Hypothyroidism, unspecified (principal); E11.9 Type 2 diabetes mellitus without complications | CPT/HCPCS: 80053; 83036; 83516; 85025 ==

== ENCOUNTER → 2023-10-02 09:26 | Outpatient (BNVA) | payer MEDICAID, SELFPAY | PROVIDERS: PCP Nurse Practitioner Family; Visit Provider Nurse Practitioner Family | DX: Z13.6 Encounter for screening for cardiovascular disorders (principal); E11.9 Type 2 diabetes mellitus without complications; E03.9 Hypothyroidism, unspecified | CPT/HCPCS: 80053; 80061; 81003; 83036; 84443; 85025 ==

== ENCOUNTER → 2024-06-23 09:29 | Outpatient (BNVA) | payer BC, SELFPAY | PROVIDERS: PCP Nurse Practitioner Family; Visit Provider Nurse Practitioner Women's Health | DX: Z01.419 Encounter for gynecological examination (general) (routine) without abnormal findings (principal); Z32.01 Encounter for pregnancy test, result positive; E11.9 Type 2 diabetes mellitus without complications; N91.2 Amenorrhea, unspecified | CPT/HCPCS: 80053; 80061; 81025; 83036; 84439; 84443; 84481; 84702; 85025; 86850; 86900 ==

== ENCOUNTER → 2024-07-07 10:32 | Outpatient (BNVA) | payer BC, SELFPAY | PROVIDERS: PCP Nurse Practitioner Family; Visit Provider Nurse Practitioner Women's Health | DX: O26.891 Other specified pregnancy related conditions, first trimester (principal); Z3A.01 Less than 8 weeks gestation of pregnancy | CPT/HCPCS: 76801 ==

== ENCOUNTER → 2024-07-22 14:27 | Outpatient (BNVA) | payer BC, SELFPAY | PROVIDERS: PCP Nurse Practitioner Family; Visit Provider Nurse Practitioner Women's Health | DX: O24.119 Pre-existing type 2 diabetes mellitus, in pregnancy, unspecified trimester (principal); Z3A.00 Weeks of gestation of pregnancy not specified | CPT/HCPCS: 80053; 82575; 83036; 84315; 85007; 85027 ==

== ENCOUNTER → 2024-08-05 10:10 | Outpatient (BNVA) | payer BC, SELFPAY | PROVIDERS: PCP Nurse Practitioner Family; Visit Provider Obstetrics & Gynecology | DX: O24.119 Pre-existing type 2 diabetes mellitus, in pregnancy, unspecified trimester (principal); Z3A.00 Weeks of gestation of pregnancy not specified | CPT/HCPCS: 80307; 84315; 87086; 87491; 87591; 87624; 87661 ==

== ENCOUNTER → 2024-08-10 13:47 | Outpatient (BNVA) | payer BC, SELFPAY | PROVIDERS: PCP Nurse Practitioner Family; Visit Provider Obstetrics & Gynecology | DX: O03.9 Complete or unspecified spontaneous abortion without complication (principal) | CPT/HCPCS: 84702; 86850; 86900 ==

== ENCOUNTER → 2024-08-12 09:38 | Outpatient (BNVA) | payer BC, SELFPAY | PROVIDERS: PCP Nurse Practitioner Family; Visit Provider Obstetrics & Gynecology | DX: O03.9 Complete or unspecified spontaneous abortion without complication (principal) | CPT/HCPCS: 84702 ==

== ENCOUNTER → 2024-09-02 14:12 | Outpatient (BNVA) | payer BC, SELFPAY | PROVIDERS: PCP Nurse Practitioner Family; Visit Provider Obstetrics & Gynecology | DX: O03.9 Complete or unspecified spontaneous abortion without complication (principal); Z3A.00 Weeks of gestation of pregnancy not specified | CPT/HCPCS: 84702 ==

== ENCOUNTER → 2024-09-29 14:11 | Outpatient (BNVA) | payer BC, SELFPAY | PROVIDERS: PCP Nurse Practitioner Family; Visit Provider Internal Medicine | DX: E11.9 Type 2 diabetes mellitus without complications (principal); E03.9 Hypothyroidism, unspecified | CPT/HCPCS: 36415; 80053; 80061; 82044; 84439; 84443; 84681; 86337; 86341 ==

== ENCOUNTER → 2025-02-09 09:02 | Outpatient (BNVA) | payer BC, SELFPAY | PROVIDERS: PCP Nurse Practitioner Family; Visit Provider Nurse Practitioner Family | DX: O09.899 Supervision of other high risk pregnancies, unspecified trimester (principal); E10.9 Type 1 diabetes mellitus without complications; Z3A.00 Weeks of gestation of pregnancy not specified | CPT/HCPCS: 80053; 81025; 82043; 83036 ==